=== PATIENT | female | born 1950 | race Caucasian/White ===

== ENCOUNTER 2016-04-11 16:01 | Emergency (ER) | payer BC ==
[2016-04-11 17:23] VITALS: BP 137/70
== END 2016-04-11 19:37 | disposition left against medical advice (07) ==
LOC: ED 16:01
DX: R51 Headache (principal); R11.0 Nausea
CPT/HCPCS: 99281

== ENCOUNTER 2016-04-11 18:31 | Emergency (ER) | payer BC ==
[2016-04-11 18:48] VITALS: BP 150/79
--- NOTE | 2016-04-11 19:26 | UC ---
Headache HPI - HPI Summary HPI Summary: The patient comes in today for: 1. Headache: Onset: Last night, during the night Palliative/provocative: Don did not stay down. Nothing else makes it better or worse other than a dark room. Quality: Sharp Region: Front of the head. Severity: 7/10 Time: Constant. Associated symptoms: Event: She slipped on the ice 4-5 days ago. She hit her head (occiput). It hurt then. Numbness: None. Weakness: None Nausea: Present. Headache history: She had "migraines" during menopause. Her last "menopause " headache was "years ago." Urination: 3 hours ago. normal yellow. She states that she has had a history of migraine headaches and has been on Imitrex in the past. She was at the ER earlier today, but after waiting "hours" she came here to be seen. * - History Of Current Complaint Chief Complaint: UCHeadache Stated Complaint: HEADACHE AND VOMITING Time Seen by Provider: 04/11/16 19:20 Hx Obtained From: Patient Hx Last Menstrual Period: Years ago. ?: No - Allergies/Home Medications Allergies/Adverse Reactions: Allergies Allergy/AdvReac Type Severity Reaction Status Date / Time No Known Allergies Allergy Verified 04/11/16 18:48 Home Medications: Home Medications Doxycycline (Rosacea) [Doxycycline] 04/11/16 [History Confirmed 04/11/16] PMH/Surg Hx/FS Hx/Imm Hx Previously Healthy: No - Rosacea, no bleeding disorders. Endocrine History Of: Reports: Dyslipidemia Denies: Diabetes, Thyroid Disease, Hyperthyroidism, Hypothyroidism Cardiovascular History Of: Denies: Cardiac Disorders, Hypertension, Pacemaker/ICD, Myocardial Infarction , Congestive Heart Failure, Atrial Fibrillation, Deep Vein Thrombosis, Bleeding Disorders Respiratory History Of: Denies: COPD, Asthma, Bronchitis, Pneumonia, Pulmonary Embolism GI/ History Of: Denies: Gastroesophageal Reflux, Ulcer, Gastrointestinal Bleed, Gall Bladder Disease, Kidney Stones, Diverticulitis, Renal Disease, Urosepsis Neurological History Of: Denies: TIA, CVA, Dementia, Seizures, Migraine Psychological History Of: Denies: Anxiety, Depression, Bipolar Disorder, Schizophrenia, Post Traumatic Stress Disorder Cancer History Of: Denies: Lung Cancer, Colorectal Cancer, Breast Cancer, Prostate Cancer, Cervical Cancer Other History Of: Negative For: HIV, Hepatitis B, Hepatitis C, Anticoagulant Therapy - Surgical History Surgical History: Yes Surgery Procedure, Year, and Place: RIGHT BIG TOE JOINT REPLACED, [facility] , 2013 - Family History Known Family History: Positive: Cardiac Disease, Hypertension - Social History Occupation: Unemployed Lives: With Family Alcohol Use: None Substance Use Type: None Smoking Status (MU): Never Smoked Tobacco Review of Systems Constitutional: Negative Skin: Negative Eyes: Negative ENT: Negative Respiratory: Negative Cardiovascular: Negative Gastrointestinal: Negative Genitourinary: Negative Neurological: Headache All Other Systems Reviewed And Are Negative: Yes Physical Exam Triage Information Reviewed: Yes Appearance: Well-Nourished, Pain Distress, Obese - She is laying on the cart with the lights of the room off, and her nausea bag. When the lights were put on, she covered her eyes. Vital Signs: Initial Vital Signs Temp 98.3 F 04/11/16 18:39 Pulse 77 04/11/16 18:39 Resp 16 04/11/16 18:39 BP 150/79 04/11/16 18:39 Pulse Ox 100 04/11/16 18:39 Vital Signs Reviewed: Yes Eyes: Positive: Conjunctiva Clear, Other: - PERRL. Negative: Discharge ENT: Positive: Hearing grossly normal. Negative: Pharyngeal erythema, Nasal congestion, Nasal drainage, TM bulging, TM dull, TM red, Tonsillar swelling, Tonsillar exudate Dental: Negative: Gross Decay/Caries @, Dental Fracture @ Neck: Positive: Supple, Nontender, No Lymphadenopathy, Nuchal Rigidity Respiratory: Positive: Chest non-tender, Lungs clear, No respiratory distress, No accessory muscle use, Respiratory distress. Negative: Crackles, Wheezing Cardiovascular: Positive: RRR, No Murmur Abdomen Description: Positive: Nontender, No Organomegaly, Soft. Negative: Distended, Guarding, Peritoneal Signs Musculoskeletal: Positive: Strength Intact, ROM Intact Neurological: Positive: Alert, Muscle Tone Normal, Other: - Neurologic exam: Inspection: no fasciculations. Cranial nerves (II-XII): intact Muscular tone: no rigiditn. Reflexes: Biceps: 2+/2 x 2 Triceps: 2+/2 x 2 Brachioradialis: 2+/2 x 2 Patellar: 2+/2 x 2 Achilles: 2+/2 x 2 Coordination: Upper extremity: Alternating patting of thighs, alternating fingertips to thumb, index finger tip to nose--all normal. Lower extremity: Heel along fernandes--normal. Strength: Upper extremity: appropriate for age and symmetrical Lower extremity: appropriate for age and symmetrical Gait: Regular: Normal. Heel to toe: Normal. Rhomberg: Normal. Sensation: No complaint of numbness. Psychological: Positive: Age Appropriate Behavior, Consolable Skin: Negative: rashes, breakdown Diagnostics - Radiology No standard instances Xray Interpretation: No Acute Changes Radiology Interpretation Completed By: Radiologist - CT of the head was normal. Re-Evaluation - Re-Evaluation First Eval Change: Improved - Nausea from 7/10 to 5/10. She wants to go with IV and pain medications. Second Eval Change: Improved - She states that her headache has improved now down from a 7 to a 4/10 She wants to go home. Headache Course/Dx - Course Course Of Treatment: Patient was told that we have given her as much as we can and if she wanted greater pain control, she would have to go to the ER. She elected to go home. - Differential Dx/Diagnosis Provider Diagnoses: Headache, mixed vascular, muscular contraction. Discharge - Discharge Plan Condition: Stable Disposition: HOME Patient Education Materials: Migraine Headache (ED), Tension Headache (ED) Referrals: Macario Elizabeth MD [Primary Care Provider] - As Soon As Possible (Please contact your primary care provider tomorrow for an appointment for a re-evaluation. If you get worse, please go to the ER. )
[2016-04-11] MEDS ORDERED: Ondansetron ODT TAB* 4 MG PO ONE (19:27)
[2016-04-11] MEDS ORDERED: diPHENhydraMINE IV* 50 MG/ML 1 ml VIAL (BENADRYL) IV ONE (20:07)
[2016-04-11] MEDS ORDERED: Ketorolac INJ* 15 MG/ML 1 ML VIAL IV PUSH ONE (20:08)
[2016-04-11] MEDS ORDERED: Ketorolac INJ* 30 MG/ML 1 ML VIAL ONE (20:14)
--- NOTE | 2016-04-11 20:23 | RAD ---
INDICATION: Headache and nausea 5 days after a fall COMPARISON: None. TECHNIQUE: Contiguous axial sections of the brain were obtained from the skull base to the vertex without contrast. FINDINGS: The ventricles, cisterns and sulci are within normal limits. The mcdaniels-white matter differentiation is adequately maintained and there is no sulcal effacement. No significant focal abnormality or mass effect is present. There is no evidence for intracranial hemorrhage. No significant focal osseous abnormality is present. The visualized portion of the paranasal sinuses and mastoid air cells appear clear. IMPRESSION: Normal CT of the brain.
[2016-04-11] MEDS ORDERED: D5NS 0.9% 1000 ML BAG* 1,000 ML IV SCH (21:00)
== END 2016-04-11 21:23 | disposition home or self-care (01) ==
LOC: UCEAST 18:31
DX: G44.1 Vascular headache, not elsewhere classified (principal); R11.0 Nausea
CPT/HCPCS: 70450; 96360; 96361; 96365; 96374; 96375; 99212; A9270-GY; G0463; J1200; J1885

== ENCOUNTER 2018-02-08 16:26 | Emergency (ER) | payer BC ==
[2018-02-08 16:55] VITALS: BP 152/86
--- NOTE | 2018-02-08 17:26 | UC ---
Ear Complaint HPI - HPI Summary HPI Summary: 67 y/o female presents to the urgent care c/o intermittent sharp pain behind her right ear for the past 5 days. Pt pain is 7/10 when it happens. But now is dull 2/10 associated w/ clear nasal discharge. Pt has been taking ibuprofen 400mg PO to alleviate symptoms. Last dose taken was at 1400pm. Pt denies fever, cough, dizziness, tinnitus, NEWMAN, SOB, chest pain, abdominal pain, N/v/D. 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 ?: No Onset/Duration: Gradual Onset, Lasting Days - 5 days, Still Present, Worse Since - yesterday Severity Initially: Mild Severity Currently: Moderate Pain Intensity: 7 Pain Scale Used: 0-10 Numeric Aggravating Factors: Nothing Alleviating Factors: OTC Meds Associated Signs/Symptoms: Negative: Discharge, Hearing Loss - Allergies/Home Medications Allergies/Adverse Reactions: Allergies Allergy/AdvReac Type Severity Reaction Status Date / Time No Known Allergies Allergy Verified 02/08/18 16:55 Home Medications: Home Medications Ibuprofen TAB* [Motrin TAB* 400 MG] 400 mg PO Q6H PRN 02/08/18 [History Confirmed 02/08/18] PMH/Surg Hx/FS Hx/Imm Hx Previously Healthy: Yes Endocrine History: Dyslipidemia Other Endocrine History: Vitamin D defficiency, osteoporosis Other History Of: Negative For: HIV, Hepatitis B, Hepatitis C, Anticoagulant Therapy - Surgical History Surgical History: Yes Surgery Procedure, Year, and Place: [place] [facility] - Family History Known Family History: Positive: Cardiac Disease, Hypertension - Social History Occupation: Retired Lives: With Family Alcohol Use: None Substance Use Type: None Smoking Status (MU): Never Smoked Tobacco Review of Systems All Other Systems Reviewed And Are Negative: Yes Constitutional: Positive: Negative Skin: Positive: Negative Eyes: Positive: Negative ENT: Positive: Ear Ache - R ear pain intermittent, Nasal Discharge - clear. Negative: Sinus Congestion Respiratory: Positive: Negative. Negative: Cough Cardiovascular: Positive: Negative Gastrointestinal: Positive: Negative Genitourinary: Positive: Negative Motor: Positive: Negative Neurovascular: Positive: Negative Musculoskeletal: Positive: Negative Neurological: Positive: Negative Psychological: Positive: Negative Is Patient Immunocompromised?: No Physical Exam - Summary Physical Exam Summary: Vital signs: reviewed General: well developed, well nourished female sitting in the examining table w/ o any apparent distress Skin: Theba, warm and dry, no evidence of atopic dermatitis, psoriasis, seborrhea. HEENT: -Head: atraumatic, non tender; no scalp dermatitis. -Eyes: sclera and conjunctiva clear, PERRLA, EOMI -Ears: no pre- or postauricular lymphadenopathy or erythema; RT external ear canal clear. Rt TM injected w/ erythema and yellowish discahrge., LF external ear canal clear and LF TM WNL. TMs normal w/out bulging or retraction. Good light reflex. No fluid level, vesicles, or bullae. No perforation. -Nose/Face: erythematous and edematous nasal mucosa with clear rhinorrhea, no frontal or maxillary sinus tender to palpation. -Mouth/Throat: Mucous membrane moist, posterior pharynx clear, no erythema or exudates. Neck: supple, FROM, nontender, no lymphadenopathy, no meningismus. Chest: Clear to auscultation, normal breath sounds Abd: soft, Bowel sounds active, Nontender. Back: no spinal or CVAT Neuro: A&O x4, GCS 15, no focal neuro deficits, normal behavior for age. Triage Information Reviewed: Yes Vital Signs: Initial Vital Signs Temp 99.9 F 02/08/18 16:50 Pulse 86 02/08/18 16:50 Resp 16 02/08/18 16:50 BP 152/86 02/08/18 16:50 Pulse Ox 100 02/08/18 16:50 Ear Complaint Course/Dx - Course Course Of Treatment: 67 y/o female presents to the urgent care c/o intermittent sharp pain behind her right ear for the past 5 days. Pt pain is 7/10 when it happens. But now is dull 2/10 associated w/ clear nasal discharge. Pt has been taking ibuprofen 400mg PO to alleviate symptoms. Last dose taken was at 1400pm. Pt denies fever, cough, dizziness, tinnitus, NEWMAN, SOB, chest pain, abdominal pain, N/v/D.Hx obtained. Pt w/ Rt otitis media on examination. Pt Rx Amoxicillin PO. Pt Advised to continue taking Ibuprofen PO to alleviate otlagia. if symptoms do not improve or worsen to return to the urgent care or f /u with PCP for further management. Pt's BP is elevated today advised to decrease salt in diet, monitor BP and f/u with PCP for further management. Pt understood and agreed with D/C - Differential Dx/Diagnosis Differential Diagnosis/HQI/PQRI: Cerumen Impaction, Otitis Externa, Otitis Media , Perforated TM Provider Diagnoses: 1- RT acute otitis media. 2- Elevated BP w/o Hx of HTN Discharge - Sign-Out/Discharge Documenting (check all that apply): Patient Departure - D/c home All imaging exams completed and their final reports reviewed: No Studies - Discharge Plan Condition: Stable Disposition: HOME Prescriptions: Amoxicillin PO (*) [Amoxicillin 875 MG (*)] 875 mg PO BID #14 tab Patient Education Materials: Ear Infection (ED), Low-Sodium Diet (ED) Referrals: Macario Elizabeth MD [Primary Care Provider] - 3 Days Additional Instructions: 1- Please take the full course of the antibiotic to avoid resistance. Take yogurt w/ probiotics or culturelle to protect digestive system 2-Continue taking ibuprofen PO q6-8hrs prn as instructed after meals to alleviate pain and swelling. Increase fluid intake, eat well, rest 3-If symptoms do not improve or worsen please return to the urgent care or f/u with your PCP in 3 days for further evaluation and treatment. 4-Your BP is elevated today. please decrease salt in your diet, monitor BP and if it continues to be elevated please f/u with your PCP for further management - Billing Disposition and Condition Condition: STABLE Disposition: Home - Attestation Statements Provider Attestation: Per institutional requirements, I have reviewed the chart, however, I was not consulted specifically or made aware of this patient by the midlevel provider. I did not personally evaluate, interact with , or disposition this patient.
== END 2018-02-08 18:02 | disposition home or self-care (01) ==
LOC: UCEAST 16:26
DX: H66.91 Otitis media, unspecified, right ear (principal); R03.0 Elevated blood-pressure reading, without diagnosis of hypertension; M81.0 Age-related osteoporosis without current pathological fracture
CPT/HCPCS: 99212; G0463

== ENCOUNTER 2018-02-10 07:37 | Emergency (ER) | payer BC ==
[2018-02-10 07:58] VITALS: BP 172/103
--- NOTE | 2018-02-10 08:26 | UC ---
Back Pain HPI - HPI Summary HPI Summary: returned from long trip to [place] 2 days ago and noted L upper back pain. tried ice and heat pad without relief. she has had shingles vacc and has noticed no rash on back. no certain motion makes the pain better or worse. she has taken ibuprofen 400mg without relief. 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 ?: No Onset/Duration: Gradual Onset Timing: Constant Severity Initially: Mild Severity Currently: Moderate Pain Intensity: 7 Back Pain: Is Discrete @ - mid upper L back Character: Aching Aggravating Factor(s): Nothing Alleviating Factor(s): Nothing Associated Signs And Symptoms: Negative: Redness, Tingling - Allergies/Home Medications Allergies/Adverse Reactions: Allergies Allergy/AdvReac Type Severity Reaction Status Date / Time No Known Allergies Allergy Verified 02/10/18 07:52 PMH/Surg Hx/FS Hx/Imm Hx Previously Healthy: Yes Endocrine History: Other - osteopenia Other History Of: Negative For: HIV, Hepatitis B, Hepatitis C, Anticoagulant Therapy - Surgical History Surgical History: Yes Surgery Procedure, Year, and Place: RIGHT BIG TOE JOINT REPLACED, [facility] , 2013 - Family History Known Family History: Positive: Cardiac Disease, Hypertension - Social History Occupation: Retired Alcohol Use: None Substance Use Type: None Smoking Status (MU): Never Smoked Tobacco Review of Systems All Other Systems Reviewed And Are Negative: Yes Constitutional: Positive: Negative Skin: Positive: Negative. Negative: Rash Respiratory: Positive: Negative Cardiovascular: Positive: Negative Musculoskeletal: Positive: Other: - back pain Neurological: Positive: Negative Psychological: Positive: Negative Is Patient Immunocompromised?: No Physical Exam Triage Information Reviewed: Yes Appearance: Well-Appearing, No Pain Distress, Well-Nourished Vital Signs: Initial Vital Signs Temp 98 F 02/10/18 07:53 Pulse 92 02/10/18 07:53 Resp 18 02/10/18 07:53 BP 172/103 02/10/18 07:53 Pulse Ox 99 02/10/18 07:53 Vital Signs Reviewed: Yes Neck exam: Normal Respiratory Exam: Normal Cardiovascular Exam: Normal Musculoskeletal Exam: Normal Musculoskeletal: Positive: Strength Intact, ROM Intact, No Edema Neurological Exam: Normal Psychological Exam: Normal Skin Exam: Normal Skin: Negative: Rashes Back Pain Course/Dx - Differential Dx/Diagnosis Differential Diagnosis/HQI/PQRI: Strain, Sprain, Other - shingles Provider Diagnoses: Back strain Discharge - Sign-Out/Discharge Documenting (check all that apply): Patient Departure All imaging exams completed and their final reports reviewed: No Studies - Discharge Plan Condition: Good Disposition: HOME Prescriptions: Cyclobenzaprine TAB* [Flexeril 10 MG TAB*] 10 mg PO BID PRN #12 tab MDD 2 PRN Reason: Pain - Back Patient Education Materials: Back Pain (ED) Referrals: Macario Elizabeth MD [Primary Care Provider] - 2 Days (recheck blood pressure) Additional Instructions: apply warm packs to area of back pain use ibuprofen 600mg 3-4 times a day as needed for pain muscle relaxer will make you tired-do not drive Also, see your primary care provider to recheck blood pressure monitor back for appearance of rash and return for recheck - Billing Disposition and Condition Condition: GOOD Disposition: Home
== END 2018-02-10 08:43 | disposition home or self-care (01) ==
LOC: UCEAST 07:37
DX: S29.012A Strain of muscle and tendon of back wall of thorax, initial encounter (principal); X58.XXXA Exposure to other specified factors, initial encounter; Y92.9 Unspecified place or not applicable
CPT/HCPCS: 99212; G0463

== ENCOUNTER 2021-09-02 06:09 | Observation (INO) ==
[~2021-09-02 06:09] MED LIST: Buffered Lidocaine 1% SYRIN 1 ml INTRADERM ONE; Dexamethasone IV 4 MG/ML VIAL 1 ml VIAL IV SLOW PU ONE; Dexamethasone IV 4 MG/ML VIAL 1 ml VIAL ONE; Famotidine IV 10 MG/ML 2 ml VIAL (20 mg) IV ONE; Famotidine IV 10 MG/ML 2 ml VIAL (20 mg) ONE; Lactated Ringers 1000 ml BAG 1,000 ML IV SCH
[2021-09-02] MEDS ORDERED: Lidocaine 1% w EPI 1:100,000 MDV 20 ML VIAL ONE (07:04)
[2021-09-02] MEDS ORDERED: Propofol 10 MG/ML 20 ML BTL ONE ×2 (07:16→08:52)
[2021-09-02] MEDS ORDERED: Succinylcholine 200 mg VIAL 20 mg/ml 10 ml VIAL (200 mg) ONE (07:16)
[2021-09-02] MEDS ORDERED: Midazolam 2 mg/2 ml VIAL 1 mg/ml 2 ml VIAL (2 mg) ONE (07:16)
[2021-09-02] MEDS ORDERED: fentaNYL 100 mcg/2 ml 50 MCG/ML VIAL ONE ×2 (07:16→10:52)
[2021-09-02] MEDS ORDERED: Prochlorperazine 5 mg/ml 2 ml VIAL (10 mg) IV PRN (07:24)
[2021-09-02] MEDS ORDERED: Naloxone 0.4 mg VIAL 0.4 mg/ml 1 ml VIAL IV PRN (07:24)
[2021-09-02] MEDS ORDERED: Ondansetron 4 mg VIAL 2 MG/ML 2 ml VIAL ONE (08:46)
[2021-09-02] MEDS ORDERED: Acetaminophen IV 1 GM/100ML 100 ML IV ONE (08:46)
[2021-09-02] MEDS ORDERED: Dexamethasone IV 4 MG/ML VIAL 1 ml VIAL ONE (08:46)
[2021-09-02] MEDS: fentaNYL 100 mcg/2 ml 50 MCG/ML VIAL IV PRN ×2 (10:53→11:59)
[2021-09-02] MEDS ORDERED: oxyCODONE 5 mg/5 ml ORAL.SOLN UDC PO PRN ×2 (13:18)
[2021-09-02] MEDS ORDERED: Ondansetron 4 mg VIAL 2 MG/ML 2 ml VIAL IM PRN (13:20)
[2021-09-02] MEDS: Calcium Carbonate LIQ 1,250 mg/5 ml UDC PO SCH ×3 (14:43→22:00)
[2021-09-02] MEDS: Ondansetron 4 mg VIAL 2 MG/ML 2 ml VIAL IV PRN ×2 (16:47→22:24)
[2021-09-02] MEDS ORDERED: NS 0.9% 1000 ml BAG 1,000 ML IV SCH (22:15)
[2021-09-03] MEDS: Calcium Carbonate LIQ 1,250 mg/5 ml UDC PO SCH ×2 (06:08→10:21)
[2021-09-03 07:49] VITALS: BP 134/73
[2021-09-03] MEDS ORDERED: Cholecalciferol (VIT D3) 1,000 unit TAB PO SCH ×2 (12:00)
[2021-09-03] MEDS ORDERED: Vitamin THERAPEUTIC TAB PO SCH (12:00)
== END 2021-09-03 11:32 | disposition home or self-care (01) ==
LOC: OR 06:09 → SSU 06:09
PROVIDERS: ADMIT Hospitalist; ATTEND Pediatrics